=== PATIENT | male | born 1980 | race Caucasian/White ===

== ENCOUNTER 2016-09-08 10:28 | Emergency (ER) | payer OTHER ==
[2016-09-08 11:20] VITALS: BP 136/83; PULSE 99; RESP 20; O2SAT 92
[2016-09-08] MEDS ORDERED: IBUPROFEN 600 MG TAB PO ONE (11:21)
[2016-09-08] MEDS ORDERED: IPRATROPIUM/ALBUTEROL 3 ML DEYVIAL IH ONE (11:27)
--- NOTE | 2016-09-08 11:32 | UCPHY ---
H & P Time Seen by Provider: 09/08/16 11:23 Patient Type: Established HPI/ROS: HPI Cough, congestion. 28-year-old male by private vehicle. Patient reports that he has had nasal congestion and dry cough for the last 6 days. He was skiing over the weekend. He reports that he now has a sensation of tightness in his chest which he describes as a cough with chest congestion and a hard time getting a full breath. He continues to have nasal congestion and intermittent fever as well. ROS: Constitutional: As above, no chills. No weakness. Eyes: No discharge. No changes in vision. ENT: No sore throat. As above. Respiratory: As above. No shortness of breath. Cardiac: No chest pain, no palpitations. Gastrointestinal: No abdominal pain, no vomiting, no diarrhea. Genitourinary: No hematuria. No dysuria or increased frequency with urination. Musculoskeletal: No back pain. No neck pain. No myalgias or arthralgias. Skin: No rashes. Neurological: No headache. No focal weakness or altered sensation. Past medical history: He denies any significant past medical history. Primary care physician is Dr. Annalee [facility]. Social history: . Here by himself. Nonsmoker. Physical Exam: General Appearance: Alert, no distress. This patient is responding to questions appropriately and in full sentences. This patient appears well- hydrated and well-nourished. Eyes: Pupils equal and round no pallor or injection. No lid edema, erythema or injection. ENT, Mouth: Mucous membranes are moist. The pharyngeal tissues are unremarkable. No edema or swelling. No asymmetry suggestive of abscess. No erythema or exudates. Respiratory: There are no retractions, lungs are clear to auscultation but diminished bilaterally. No wheezing. No rhonchi. No tachypnea. Cardiovascular: Regular rate and rhythm. No murmur. Neurological: Motor sensory function is grossly intact. Cranial nerves are normal. Gait is normal. Skin: Warm and dry, no rashes. Musculoskeletal: Neck is supple and nontender. Extremities are symmetrical. All joints range without pain or impingement. Psychiatric: No agitation. No depression. Database: Rapid flu-influenza A positive. EKG: Imaging: Chest x-ray PA and lateral; the cardiac mediastinal silhouette is unremarkable. No evidence of infiltrate or pneumothorax. No acute cardiopulmonary disease process noted. Interpreted by me. Procedures: Emergency department course: Patient given 600 mg of ibuprofen from triage. Vital signs reviewed. He is febrile at 39.0, borderline tachycardic. Pulse oximetry 92% on room air. Flu swab obtained. After my evaluation he was sent for a PA and lateral chest x- ray. He will be given a trial albuterol/Atrovent nebulizer. 11:45 a.m., patient re-evaluated. Diagnosis of influenza discussed with him. Chest x-ray results discussed with him. He was given 75 mg of oral Tamiflu. He stated that the albuterol/Atrovent nebulizer treatment as meet his breathing easier. Repeat pulmonary exam, no tachypnea, good air movement bilaterally. Clear lung sounds. He feels comfortable going home and I feel he is safe for discharge. I will prescribe him an albuterol meter dose inhaler. He will also be prescribed Tamiflu. Ibuprofen dosing discussed with him. Follow-up and return to Urgent Care precautions reviewed. All of his questions were answered. He was discharged in good condition. Differential Diagnosis: The differential diagnosis on this patient includes but is not limited to bronchitis, influenza, pneumonia, reactive airway disease. This represents a partial list of diagnoses considered. These considerations are based on history , physical exam, past history, reassessment and diagnostic testing. Smoking Status: Former smoker Constitutional: Initial Vital Signs Temperature (C) 39 C H 09/08/16 11:11 Heart Rate 99 09/08/16 11:11 Respiratory Rate 20 09/08/16 11:11 Blood Pressure 136/83 H 09/08/16 11:11 O2 Sat (%) 92 09/08/16 11:11 O2 Delivery Mode Room Air Allergies/Adverse Reactions: Sulfa (Sulfonamide Antibiotics) Allergy (Verified 09/08/16 11:27) Home Medications: Medication Instructions Recorded Albuterol [Proventil Inhaler HFA 2 puffs IH Q2-4PRN PRN #1 mdi 09/08/16 (*)] Oseltamivir Phosphate [Tamiflu 75 75 mg PO BID #10 cap 09/08/16 mg (RX)] Medical Decision Making - Data Points Laboratory Results: 09/08/16 11:25 Influenza Typ A,B (DFA) POSITIVE FOR FLU A H (NEGATIVE) Medications Given: Discontinued Medications Ibuprofen (Motrin) 600 mg PO EDNOW ONE Stop: 09/08/16 11:22 Last Admin: 09/08/16 11:26 Dose: 600 mg Departure - Departure Disposition: Home, Routine, Self-Care Clinical Impression: Bronchitis, Influenza A Condition: Good Instructions: Influenza (ED) Additional Instructions: Read and follow provided instructions. Follow-up with your primary care physician in 1-2 days for re-evaluation. Get plenty of rest, no strenuous physical activity. Keep yourself hydrated. Take medication as prescribed. Ibuprofen dosin mg every 6 hours with meals for the next 3 days only. Return to the emergency department for worsening symptoms or other serious concerns. Referrals: BRITANY LONDONO [Primary Care Provider] - As per Instructions Prescriptions: Albuterol [Proventil Inhaler HFA (*)] 2 puffs IH Q2-4PRN PRN #1 mdi PRN Reason: Sob/Dyspnea Oseltamivir Phosphate [Tamiflu 75 mg (RX)] 75 mg PO BID #10 cap - PQRS PQRS Measurement: Not applicable.
[2016-09-08] MEDS ORDERED: OSELTAMIVIR PHOSPHATE 75 MG CAP PO ONE (11:47)
[2016-09-08 12:13] VITALS: TEMP 211.8
--- NOTE | 2016-09-08 12:30 | DX ---
PA and Lateral Chest 1145 a.m. Indication: Dyspnea Comparison: 2 view chest dated May 26, 2015 Findings: Left basilar consolidation has completely resolved since May 2015. Minimal diffuse shruthi bronchial thickening is unchanged. The heart size is normal. No edema or effusion. Impression: No pneumonia. Minimal airways disease.
== END 2016-09-08 12:20 | disposition home or self-care (01) ==
LOC: CED 10:28
DX: J09.X2 Influenza due to identified novel influenza A virus with other respiratory manifestations (principal); Z87.891 Personal history of nicotine dependence
CPT/HCPCS: 71020-PO; 87400-PO; 99214-PO; G0463-PO